=== PATIENT | female | born 1955 | race Caucasian/White ===

== ENCOUNTER 2024-09-30 13:57 | Outpatient (RCR) | payer MEDICARE, BC, SELFPAY ==
--- NOTE | 2024-09-30 15:41 | CTCCONSULT_ITS ---
[facility] [address] [place], [place] [address] Consultation Note Date: 09/30/2024 MR#: [id number] Name: DONELL MICHAEL : 1955 Dx: R31.9 Hematuria, unspecified Identification. [facility] PAJoel Reason for consultation. Patient with pelvic mass and hematuria referred to the cancer treatment [facility]. History of Present Illness: Patient is a 69-year-old lady who had intermittent hematuria for a year w hich has gotten worse. UA 09/02/2024 showed greater than 185 RBCs but CBCs to reveal hemoglobin of 1 4.2 and platelets [address] abdomen pelvis 09/03/2024 revealed thickened anterior wall of the giorgio dder and 7.1 5.6 x 6.62 cm cystic lesion in posterior right pelvis. Had ultrasound of pelvis which revealed large right ovarian cyst with left ovary not visualized. Incidentally noted debri s within urinary bladder. Patient has appointment with urologist Dr. Kennedy in a.m. and cystoscopy und oubtably will be scheduled for patient. Patient now referred to the cancer treatment center. Michael goss states that she had a short course of antibiotics recently which did not help symptoms. Past Medical History: Denies significant other medical conditions Meds. Calcium Metamucil fiber rosuvastatin for cholesterol lysine magnesium fish oil glucosamine Allergies none to meds Family history. Mother had lymphoma cancer Social History: Patient a lives with partner who runs [employer] in [place]. Denies smoking drinking Review of Systems: Still has intermittent hematuria worse in recent weeks along with dysuria. Denies weight loss Physical Exam: General: Well-appearing lady no acute distress HEENT: Atraumatic normocephalic extraocular is intact no oral lesion no cervical or supraclavicular a juliette CV: Chest clear to station heart regular rate and rhythm ABD: Soft no organomegaly mild tenderness in suprapubic region EXT: No signs of clubbing or edema Assessment: Patient with intermittent hematuria with CT showing thickening anterior with large cystic lesion posterior right pelvis. Ultrasound suggests right ovarian cyst. Plan:1. Patient will be seeing urologist Dr. Kennedy tomorrow undoubtedly cystoscopy biopsy and related tests will be performed. 2. I have scheduled for follow-up in 3 weeks to go over these results and any additional tests that may be indicated. 3. Thank you very much for allowing me to evaluate this very nice patient Cc: Marco A Dill PA-C [facility] DO Víctor Rodríguez Electronically signed by: Feliciano Alvarez MD, DABR 09/30/2024 3:39 PM
== END 2024-10-10 23:59 | disposition home or self-care (01) ==
LOC: SCTC 13:57
PROVIDERS: PCP Physician Assistant Medical; Referring Provider Physician Assistant; Visit Provider Radiology Therapeutic Radiology
DX: R31.9 Hematuria, unspecified (principal); R19.09 Other intra-abdominal and pelvic swelling, mass and lump; N83.201 Unspecified ovarian cyst, right side; Z90.721 Acquired absence of ovaries, unilateral; Z80.7 Family history of other malignant neoplasms of lymphoid, hematopoietic and related tissues
CPT/HCPCS: 99213; G0463

== ENCOUNTER → 2024-11-02 | Outpatient (CLI) | payer MEDICARE, BC, SELFPAY ==
--- NOTE | 2024-11-02 12:00 | XR_ITS ---
Examination: Bone densitometry Date and time of exam:November 02, 2024 1154 hours INDICATIONS: Menopause age 54 postmenopausal wrist fracture calcium and vitamin D 46 years Technique: Lumbar spine and hip total bone mineralization values of an calculated. Peak reference and age match control results have been displayed. Findings: Lumbar spine total bone mineralization is1.111 gm/cm2. This is 0.6 standard deviations above peak reference. This is 2. standard deviations above age-matched controls. Hip total bone mineralization is 0.969 gm/cm2 This is 0.2 standard deviations above peak reference. This is 1.6 standard deviations above age-matched controls Impression: There is normal mineralization based on lumbar spine measurements. There is normal mineralization based on hip measurements
== END | disposition home or self-care (01) ==
LOC: CDIM 11:21
PROVIDERS: Referring Provider Physician Assistant Medical; Visit Provider Physician Assistant Medical
DX: Z13.820 Encounter for screening for osteoporosis (principal)
CPT/HCPCS: 77080

== ENCOUNTER 2024-12-10 10:33 | Outpatient (RCR) | payer MEDICARE, BC, SELFPAY ==
--- NOTE | 2024-12-10 11:23 | CTCFLWUP_ITS ---
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 Patient underwent TURBT performed by Dr. Kennedy on 11/23/2024. This revealed invasive high-grade papillary urothelial l carcinoma with tumor invading subepithelial connective tissue into a few thin smooth muscles. Muscular propria present. This was thought to be at least pT1. Superficial invasion into muscular propria could not be definitely excluded. Received instillation of Mitomycin-C as well. Patient after a period of rest sometime in January she is scheduled for additional surgery according to patient. to better staging and obtain clear margins Patient states she is feeling generally well but has more frequency of urination since the operation. Will schedule for follow-up in 3 months regarding any need for possible postop care. Patient currently has brought the path and op report to us. Electronically signed by: Feliciano Alvarez M.D. 12/10/2024 11:20 AM
== END 2024-12-11 23:59 | disposition home or self-care (01) ==
LOC: SCTC 10:33
PROVIDERS: PCP Physician Assistant Medical; Referring Provider Radiology Therapeutic Radiology; Visit Provider Radiology Therapeutic Radiology
DX: C67.3 Malignant neoplasm of anterior wall of bladder (principal)
CPT/HCPCS: 99212; G0463

== ENCOUNTER 2025-02-11 10:38 | Outpatient (RCR) | payer MEDICARE, BC, SELFPAY ==
--- NOTE | 2025-02-11 11:37 | CTCFLWUP_ITS ---
[facility] [address] [place], [place] [address] FOLLOW-UP NOTE Date: 02/11/2025 MR#: [id number] Name: DONELL MICHAEL : Dx: R31.9 Hematuria, unspecified Identification. Patient underwent TURBT performed by Dr. Kennedy 11/23/2024. This revealed invasive high-grade papillary urothelial carcinoma tumor invading subepithelial connective tissue and into few thin smooth muscles. There was thought to be at least pT1 with superficial invasion into muscularis propria could not be definitely excluded. Received instillation of Mitomycin-C as well. Patient underwent additional TURBT 01/04/2025 revealing bladder mucosa with stromal fibrosis with inflammation negative for dysplasia or malignancy. Muscularis propria present and unremarkable. Patient states that she will undergo Mitomycin-C by catheter into bladder once a week for 6 weeks and on May 07, 2025 Dr. Kennedy will do cystoscopy with camera. Also underwent surgical procedure moving right ovary and fallopian tube with right salpingo-oophorectomy and left ovary and fallopian tube with left salpingo-oophorectomy performed at [facility] 01/20/2025 with no malignancy seen. There was right ovary with serous cystoadenoma 7.5 cm. Feeling well overall with largely regular urinary and bowel function. A#1. pT1 high-grade papillary Murali carcinoma status post TURBT 11/23/2024. # 2 Has been undergoing regular instillation of Mitomycin-C by Dr. Kennedy. Repeat TURBT on 01/04/2025 negative for dysplasia or malignancy. #3. On April 12 cystoscopy with camera planned. # 4. Recent removal right ovarian cyst serous cystoadenoma. No malignancy seen seen in either ovaries or tubes. #5. Follow-up in 4 months. Cc: [facility] Electronically signed by: Feliciano Alvarez M.D. 02/11/2025 11:35 AM
== END 2025-03-10 23:59 | disposition home or self-care (01) ==
LOC: SCTC 10:38
PROVIDERS: PCP Physician Assistant Medical; Referring Provider Radiology Therapeutic Radiology; Visit Provider Radiology Therapeutic Radiology
DX: C67.9 Malignant neoplasm of bladder, unspecified (principal)
CPT/HCPCS: 99212; G0463

== ENCOUNTER → 2025-03-19 | Outpatient (CLI) | payer MEDICARE, BC, SELFPAY ==
--- NOTE | 2025-03-19 13:30 | XR_ITS ---
Examination: Breast ultrasound complete, bilateral Date and time of exam: March 19, 2025 1559 hours INDICATIONS: Bilateral breast sonography November 15, 2023 12:00 nodule 27 mm 2:00 nodule left breast 7 mm 6:00 nodule left breast 4 mm Technique: Real-time grayscale ultrasonographic imaging bilateral breasts, including all 4 quadrants as well as nipple retroareolar and axillary regions. Findings: Sonographic images right and left breast demonstrate scattered fibroglandular densities no solid nodules IMPRESSION: BI-RADS Category 2: Benign findings
== END | disposition home or self-care (01) ==
PROVIDERS: PCP Physician Assistant Medical; Referring Provider Physician Assistant Medical; Visit Provider Physician Assistant Medical
DX: R92.323 Mammographic fibroglandular density, bilateral breasts (principal)
CPT/HCPCS: 76641

== ENCOUNTER 2025-06-17 10:43 | Outpatient (RCR) | payer MEDICARE, BC, SELFPAY ==
--- NOTE | 2025-06-17 11:53 | CTCFLWUP_ITS ---
[facility] [address] [place], [place] [address] FOLLOW-UP NOTE Date: 06/17/2025 MR#: [id number] Name: DONELL MICHAEL : 1955 Dx: R31.9 Hematuria, unspecified Identification. Patient underwent TURBT performed by Dr. Kennedy 11/23/2024. This revealed invasive high-grade papillary 0 carcinoma tumor invading subepithelial connective tissue and into few thin smooth muscles. This was thought to be at least pT1 with superficial invasion to muscular propria could not be definitely excluded. Received instillation of Mitomycin-C as well. Underwent additional TURBT 01/04/2025 revealing bladder mucosa with stromal fibrosis with inflammation negative for dysplasia or malignancy. . Patient also underwent surgical procedure removing right ovary and fallopian tube with right salpingo-oophorectomy and left ovary and fallopian tube with left salpingo-oophorectomy performed at [facility] [place] 01/20/2025 with no malignancy seen. There was right ovary with serous cystoadenoma 7.5 cm. Patient underwent 2 cystoscopies where gemcitabine was instilled into bladder 05/07/2025 and 06/10/2025. Did go to ER at [facility] 3 occasions in May for problems of difficulty urinating. This problem is now alleviated. A#1. pT1 high-grade papillary Urothelial carcinoma prior TURBT receiving intravesical chemo with Dr. Brent Renee. Mitomycin-C and gemcitabine #2. recent problems related to difficulty urinating went to [facility] [place] ER multiple times now better #3. recent removal of right ovarian cyst serous cystadenoma no malignancy seen in either ovaries or tubes #4. I will see her again in 4 months time. Electronically signed by: Feliciano Alvarez M.D. 06/17/2025 11:51 AM
== END 2025-07-11 23:59 | disposition home or self-care (01) ==
LOC: SCTC 10:43
PROVIDERS: PCP Physician Assistant Medical; Referring Provider Physician Assistant Medical; Visit Provider Radiology Therapeutic Radiology
DX: C67.9 Malignant neoplasm of bladder, unspecified (principal); D27.0 Benign neoplasm of right ovary; Z90.722 Acquired absence of ovaries, bilateral; Z98.890 Other specified postprocedural states
CPT/HCPCS: 99213; G0463